=== PATIENT | female | born 1965 | race Caucasian/White ===

== ENCOUNTER 2022-01-27 17:26 | Emergency (ER) | payer MEDICAID ==
[~2022-01-27] VITALS: Ht 165.1 cm; Wt 59.0 kg
[2022-01-27 18:05] LABS: HEMATOCRIT 44.9 % (31.2-41.9); MEAN CORPUSCULAR HEMOGLOBIN 29.4 uug (24.7-32.8); MEAN CORPUSCULAR VOLUME 84.6 fL (75.5-95.3); PLATELET COUNT (AUTO) 315 K/uL (179-408)
[2022-01-27 18:13] LABS: ABG BASE EXCESS 2.2 mmol/L; ABG HCO3 27.4 mmol/L; ABG PCO2 44.6 mmHg (35.0-45.0); ABG PH 7.406 (7.350-7.450); ABG PO2 79.6 mmHg (75.0-100.0); ABG SITE LEFT RADIAL; ABG TOTAL HEMOGLOBIN 14.6 G/dL (12.0-16.0); COHb 4.1 % (0.5-1.5); MetHb 0.3 % (0.0-1.5); O2Hb 91.6 % (94.0-97.0); VENT MODE Nasal Cannula
[2022-01-27 18:24] LABS: *BILIRUBIN,URIN NEGATIVE (NEGATIVE); *BLOOD, URINE NEGATIVE (NEGATIVE); *CLARITY,URINE CLEAR (CLEAR); *COLOR,URINE YELLOW (YELLOW); *KETONES,URINE NEGATIVE (NEGATIVE); LEUKOCYTE ESTERASE ,URINE NEGATIVE (NEGATIVE); NITRITE, URINE NEGATIVE (NEGATIVE)
[2022-01-27 18:24] LABS: CREATININE 0.8 mg/dL (0.6-1.3); POTASSIUM 4.3 mmol/L (3.5-5.1)
[2022-01-27 18:26] LABS: UGLUCOSE 3+ (NEGATIVE)
[2022-01-27 18:29] LABS: CREATINE KINASE, TOTAL 43 U/L (26-192)
--- NOTE | 2022-01-27 18:29 | NUR ---
Lab called with critical BS result of 455. was informed.
[2022-01-27 18:30] LABS: BILIRUBIN,DIRECT 0.2 mg/dL (0.0-0.2); BILIRUBIN,TOTAL 0.8 mg/dL (0.2-1.0); TOTAL PROTEIN, SERUM 8.9 g/dL (6.4-8.2)
[2022-01-27] MEDS ORDERED: INSULIN REGULAR, HUMAN 300 UNIT/3 ML VIAL SQ ONE (19:00)
[2022-01-27] MEDS ORDERED: INSULIN REGULAR, HUMAN 300 UNIT/3 ML VIAL ONE (19:02)
--- NOTE | 2022-01-27 19:20 | NUR ---
Dr. Traylor speaking with Dr. Looney of [facility].
--- NOTE | 2022-01-27 20:25 | NUR ---
Received call back from Ousmane, [employer] of [facility], with transfer information. Patient accepted by Dr. Looney, going to room 2278, number to report to is .
[2022-01-27 20:27] LABS: BACTERIA,URINE NONE SEEN /HPF (NONE SEEN); RBC,URINE 0-3 /HPF (0-3); SQUAMOUS EPITHELIAL CELL,UR FEW /HPF (NONE SEEN); WBC,URINE 0-3 /HPF (0-3)
--- NOTE | 2022-01-27 20:37 | NUR ---
Called [facility] ambulance for BLS transport to [facility], ETA 60-75 min ~2200.
--- NOTE | 2022-01-27 21:35 | NUR ---
[facility] arrived to ER to transport patient to [facility], report and documentation given to EMT.
--- NOTE | 2022-01-27 21:58 | NUR ---
[facility]
== END 2022-01-27 21:59 | disposition short-term general hospital (02) ==
LOC: ER 17:29
DX: R53.1 Weakness (principal); R73.9 Hyperglycemia, unspecified; Z20.822 Contact with and (suspected) exposure to COVID-19; Z59.00 Homelessness unspecified; F17.210 Nicotine dependence, cigarettes, uncomplicated; Z88.6 Allergy status to analgesic agent; F20.9 Schizophrenia, unspecified; F19.10 Other psychoactive substance abuse, uncomplicated
CPT/HCPCS: 36415; 36600 ×2; 71045; 80048; 80076; 81001; 82009; 82550; 82962 ×2; 83605; 84145; 85025; 87040 ×2; 87426; 93005; 96372; 99285; J1815; A4663; J7040

== ENCOUNTER 2022-10-25 12:45 | Emergency (ER) | payer MEDICAID, OTHER ==
[~2022-10-25] VITALS: Ht 160 cm; Wt 60.8 kg
[~2022-10-25 12:45] MED LIST: ALBU8.5H8 INH; LEVO500T2 PO; METF-442 PO
[2022-10-25] MEDS ORDERED: OLANZAPINE 10 MG VIAL IM ONE ×2 (14:53→15:00)
[2022-10-25] MEDS ORDERED: LORAZEPAM 1 MG TABLET ONE (14:54)
[2022-10-25] MEDS ORDERED: LORAZEPAM 0.5 MG TABLET PO ONE (15:00)
--- NOTE | 2022-10-25 15:18 | NUR ---
Patient discharged to home in stable condition. Written and verbal after care instructions given. Patient verbalizes understanding of instructions. Stressed follow up or return to ER for worsening s/s.
== END 2022-10-25 15:29 | disposition home or self-care (01) ==
LOC: ER 12:45
DX: R25.1 Tremor, unspecified (principal); F41.9 Anxiety disorder, unspecified; Z88.6 Allergy status to analgesic agent
CPT/HCPCS: A4663; J2358

== ENCOUNTER 2025-01-30 14:11 | Emergency (ER) | payer OTHER ==
[~2025-01-30] VITALS: Ht 154.9 cm; Wt 86.2 kg
[2025-01-30 14:48] LABS: BASOPHILS # (AUTO) 0.1 K/UL (0.0-0.2); BASOPHILS % (AUTO) 1.3 % (0.0-2.0); EOSINOPHILS # (AUTO) 0.1 K/uL (0.0-0.7); EOSINOPHILS % (AUTO) 1.4 % (0.0-7.0); HEMATOCRIT 40.3 % (31.2-41.9); HEMOGLOBIN 14.2 g/dL (10.9-14.3); LYMPHOCYTES # (AUTO) 1.7 K/uL (0.8-4.8); LYMPHOCYTES % (AUTO) 27.6 % (20.5-51.5); MEAN CORPUSCULAR HEMOGLOBIN 29.5 uug (24.7-32.8); MEAN CORPUSCULAR HGB CONC 35 g/dL (32.3-35.6); MEAN CORPUSCULAR VOLUME 83.8 fL (75.5-95.3); MONOCYTES # (AUTO) 0.5 K/uL (0.1-1.30); MONOCYTES % (AUTO) 7.3 % (0.0-11.0); NEUTROPHILS # (AUTO) 3.9 K/uL (1.8-8.9); NEUTROPHILS % (AUTO) 62.4 % (38.5-71.5); PLATELET COUNT (AUTO) 211 K/uL (179-408); RED BLOOD CELL COUNT(AUTO) 4.81 MIL/uL (3.63-4.92); RED CELL DISTRIBUTION WIDTH 12.6 % (12.3-17.7); WHITE BLOOD COUNT (AUTO) 6.3 K/uL (3.8-11.8)
[2025-01-30 14:49] LABS: DIFFERENTIAL COMMENT 1
[2025-01-30 14:55] LABS: ALBUMIN 2.8 g/dL (3.4-5.0); BILIRUBIN,DIRECT 0.2 mg/dL (0.0-0.2); BILIRUBIN,TOTAL 0.6 mg/dL (0.2-1.0); CALCIUM 8.3 mg/dL (8.5-10.1); CREATININE 0.7 mg/dL (0.6-1.3); ETHANOL < 3 MG/DL (0-10); POTASSIUM 4.3 mmol/L (3.5-5.1); TOTAL PROTEIN, SERUM 7.8 g/dL (6.4-8.2)
[2025-01-30 14:56] VITALS: O2SAT 96
[2025-01-30] MEDS: IPRATROPIUM BROMIDE 0.5 MG/2.5 ML NEBU NEB ONE (14:56)
[2025-01-30] MEDS: ALBUTEROL SULFATE 2.5 MG/3 ML NEBU NEB ONE (14:56)
[2025-01-30] MEDS ORDERED: IPRATROPIUM BROMIDE 0.5 MG/2.5 ML NEBU ONE (14:58)
[2025-01-30] MEDS ORDERED: ALBUTEROL SULFATE 2.5 MG/3 ML NEBU ONE (14:58)
[2025-01-30 15:11] VITALS: O2SAT 99
[2025-01-30] MEDS: predniSONE 10 MG TABLET PO ONE (15:24)
[2025-01-30] MEDS ORDERED: predniSONE 20 MG TABLET ONE (15:24)
[2025-01-30] MEDS: IV NS 1000 ML 1,000 ML IV PRN (15:27)
[2025-01-30] MEDS ORDERED: BUDE10.2 INH (15:45)
[2025-01-30] MEDS ORDERED: ALBU8HFA4 IH (15:45)
[2025-01-30 16:36] VITALS: BP 110/68; O2SAT 99
== END 2025-01-30 16:10 | disposition left against medical advice (07) ==
LOC: ER 14:11
DX: J45.901 Unspecified asthma with (acute) exacerbation (principal); J44.1 Chronic obstructive pulmonary disease with (acute) exacerbation; E11.65 Type 2 diabetes mellitus with hyperglycemia; E86.0 Dehydration; F17.210 Nicotine dependence, cigarettes, uncomplicated; F19.10 Other psychoactive substance abuse, uncomplicated; Z79.51 Long term (current) use of inhaled steroids; Z79.84 Long term (current) use of oral hypoglycemic drugs; Z88.6 Allergy status to analgesic agent; Z88.7 Allergy status to serum and vaccine; Z60.2 Problems related to living alone; Z86.59 Personal history of other mental and behavioral disorders; Z20.822 Contact with and (suspected) exposure to COVID-19
CPT/HCPCS: 80076; 80048; 82140; 85025; 85730; 36415; 71045; 93005; 99285; 96360; 80320; J7512; J7040; A4606; A4663; G0480; J3590